=== PATIENT | female | born 1960 | race Two or more races ===

== ENCOUNTER 2016-09-19 19:13 | Emergency (ER) | payer OTHER ==
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
[2016-09-19] MEDS ORDERED: HYDROCODONE/APAP 5/325 TAB PO ONE (20:16)
[2016-09-19] MEDS ORDERED: predniSONE 20 MG TAB PO ONE (21:54)
[2016-09-19 22:17] VITALS: BP 147/90; PULSE 80; RESP 16; TEMP 97.9; O2SAT 97
== END 2016-09-19 22:16 | disposition home or self-care (01) ==
DX: M54.12 Radiculopathy, cervical region (principal)

== ENCOUNTER → 2017-07-27 | Outpatient (CLI) | payer OTHER | LOC: FIMAGING 15:22 | DX: R07.81 Pleurodynia (principal) ==

== ENCOUNTER → 2017-10-04 | Outpatient (CLI) | payer OTHER | LOC: FIMAGING 10:14 → EDSTATUS 10:18 | PROVIDERS: ATTEND Family Medicine | DX: M25.531 Pain in right wrist (principal) ==

== ENCOUNTER 2017-10-08 17:58 | Emergency (ER) | payer OTHER ==
[2017-10-08] MEDS ORDERED: NS 1,000 ML IV ONE (18:06)
[2017-10-08] MEDS ORDERED: fentaNYL 100 MCG/2 ML INJ IVP ONE ×2 (18:06→21:22)
[2017-10-08 18:23] LABS: PLATELET COUNT 375 10^3/uL (150-400)
[2017-10-08 18:47] LABS: CREATINE KINASE 80 IU/L (0-156)
[2017-10-08] MEDS ORDERED: KETOROLAC 15 MG/1 ML SDV IVP ONE (21:22)
--- NOTE | 2017-10-08 21:58 | EDPHY ---
H & P Stated Complaint: Bilat leg cramping - Personal History Current Tetanus Diphtheria and Acellular Pertussis (TDAP): Unsure - Medical/Surgical History Hx Asthma: No Hx Chronic Respiratory Disease: No Hx Diabetes: No Hx Cardiac Disease: No Hx Renal Disease: No Hx Cirrhosis: No Hx Alcoholism: No Hx HIV/AIDS: No Hx Splenectomy or Spleen Trauma: No Other PMH: 1. Cervical radiculopathy. 2. Chronic neck pain. 3. Chronic back pain. 4. Hyponatremia while taking Tegretol. 5. Trigeminal neuralgia. 6. Hypothyroid - Social History Smoking Status: Never smoked Time Seen by Provider: 10/08/17 18:10 HPI/ROS: Chief complaint: Bilateral leg cramping History of present illness: 56-year-old female presents to the emergency department with EMS for bilateral leg cramping. She states her entire legs on both sides are affected. Cramping does cause pain. Occasionally she has numbness in the legs. Makes it difficult to move the legs when this occurs. She has had problems like this for the last year. They occur once or twice a month. Over the last month however they have worsened. She does have associated low back pain. She denies precipitating factors including no trauma. No associated fever, no abdominal pain, no bowel or bladder dysfunction , no report of saddle anesthesia. Review of systems: A 10 point review of systems was obtained and other than described above was negative (Alexander Sanders) - Physical Exam Exam: General Appearance: Alert, appears uncomfortable. Eyes: Pupils equal and round no pallor or injection. ENT, Mouth: Mucous membranes moist. Respiratory: There are no retractions, lungs are clear to auscultation. Cardiovascular: Regular rate and rhythm. DP and PT pulses 2+ bilaterally. Gastrointestinal: Abdomen is soft and non tender, no masses, bowel sounds normal. Neurological: Alert and oriented x4. Cranial nerves 2-12 grossly intact. Strength and sensation intact and symmetrical. Patellar and Achilles reflexes 2 + bilaterally. Straight leg raise test is negative bilaterally. Skin: Warm and dry, no rashes. Musculoskeletal: Neck is supple non tender. She is able to move her lower extremity although this appears to take significant effort. Psychiatric: Patient is oriented X 3, there is no agitation. (Alexander Sanders) Constitutional: Initial Vital Signs Temperature (C) 37 C 10/08/17 18:03 Heart Rate 104 H 10/08/17 18:03 Respiratory Rate 19 10/08/17 18:03 Blood Pressure 139/87 H 10/08/17 18:03 O2 Sat (%) 96 10/08/17 18:03 O2 Delivery Mode Room Air Allergies/Adverse Reactions: tramadol Allergy (Mild, Verified 09/19/16 19:17) itchy morphine Allergy (Unknown, Verified 09/19/16 19:17) most narcotics Allergy (Mild, Uncoded 09/19/16 19:17) itchy Home Medications: Medication Instructions Recorded Gabapentin [Neurontin 300 MG (*)] 600 mg PO TID 12/12/11 Levothyroxine [Synthroid 75 mcg 75 mcg PO DAILY06 12/12/11 (*)] Verapamil [Calan 80MG (*)] 80 mg PO BID 09/04/15 Indomethacin [Indocin 25 mg (*)] 25 mg PO TIDMEAL PRN #30 cap 09/07/15 Valium 09/19/16 Medical Decision Making - Diagnostics Imaging: Discussed imaging studies w/ call or contact centre manager Radiologist ED Course/Re-evaluation: Patient is discussed with my secondary supervising physician Dr. Danny Pinedo. Patient presents for leg cramping. She is not toxic. The legs are neurovascularly intact. Blood studies and MRI of the lumbar spine are unremarkable. On re-evaluation her pain is controlled. She is moving them well. She is ambulating without difficulty. She will be discharged home. Home care is discussed. She is to follow up with a primary care doctor for recheck. Return precautions are given. (Alexander Sanders) I did not see this patient while she was in the emergency department. However her care was discussed with the PA while the patient was in the department. I agree with treatment plan and management (Danny Pinedo) Differential Diagnosis: Included but not limited to sprain or strain, electrolyte disturbances, rhabdomyolysis, spinal cord dysfunction (Alexander Sanders) - Data Points Laboratory Results: Laboratory Results 10/08/17 18:10 10/08/17 18:10 Medications Given: Discontinued Medications Fentanyl (Sublimaze) 100 mcg IVP EDNOW ONE Stop: 10/08/17 18:07 Last Admin: 10/08/17 18:19 Dose: 100 mcg Sodium Chloride (Ns) 1,000 mls @ 0 mls/hr IV EDNOW ONE; Wide Open PRN Reason: Protocol Stop: 10/08/17 18:07 Last Admin: 10/08/17 18:20 Dose: 1,000 mls Ketorolac Tromethamine (Toradol) 15 mg IVP EDNOW ONE Stop: 10/08/17 21:23 Last Admin: 10/08/17 22:04 Dose: 15 mg Departure - Departure Disposition: Home, Routine, Self-Care Clinical Impression: Leg cramps Condition: Good Instructions: Leg Cramps (ED) Additional Instructions: Follow-up with your primary care doctor this week for recheck If symptoms worsen or new symptoms develop return to the emergency room for recheck Referrals: Sia Lambert MD [Primary Care Provider] - As per Instructions
[2017-10-08 22:10] VITALS: BP 136/79
== END 2017-10-08 22:10 | disposition home or self-care (01) ==
LOC: EDUNIT#
DX: R25.2 Cramp and spasm (principal); E86.9 Volume depletion, unspecified
CPT/HCPCS: 96374; J1885; J3010